=== PATIENT | female | born 1970 | race Caucasian/White ===

== ENCOUNTER 2018-01-21 09:38 | Outpatient (CLI) | payer BC ==
--- NOTE | 2018-01-21 12:01 | Mammography Report ---
Bilateral mammogram and right breast ultrasound: The patient presents with possible right breast abscess. Although there is a language barrier apparently the patient has been treated with antibiotics with improvement. A marker was placed over the area of concern and routine views obtained. The marker is located laterally. The overall breast pattern is heterogeneous, symmetric, and generally unremarkable. There is no finding related to the marker. Targeted right breast ultrasound over the area of concern in the 8:00 location approximately 8 cm from the nipple demonstrates a circumscribed hypoechogenicity in the subcutaneous tissue measuring approximately 2 x 18 mm. No other findings are noted. CAD used. Impression: In view with the patient's history of improvement with medication this most likely to represents a small infectious collection. Recommendation: Continued clinical followup with appropriate treatment. BI-RADS CATEGORY: 2 = Benign ACR BI-RADS MAMMOGRAPHIC CODES: 0 = Needs additional imaging evaluation; 1 = Negative; 2 = Benign; 3 = Probably benign; 4 = Suspicious; 5 = Malignant; 6 = Known biopsy-proven malignancy COMMENT: 1. Dense breast tissue, i.e., adenosis, fibrocystic changes, etc., may obscure an underlying neoplasm. 2. Approximately 10% of cancers are not detected with mammography. 3. A negative mammography report should not delay biopsy if a clinically suspicious mass is present.
== END 2018-01-21 09:39 | disposition home or self-care (01) ==
LOC: US 09:38
PROVIDERS: ATTEND Internal Medicine
DX: N61.1 Abscess of the breast and nipple (principal)
CPT/HCPCS: 77066

== ENCOUNTER 2018-12-27 09:23 | Outpatient (CLI) | payer BC ==
[2018-12-27 10:21] LABS: Chol/HDL Ratio 2.6 %
== END 2018-12-27 09:24 | disposition home or self-care (01) ==
LOC: LAB 09:23
PROVIDERS: ATTEND Internal Medicine
DX: E55.9 Vitamin D deficiency, unspecified (principal); E78.5 Hyperlipidemia, unspecified
CPT/HCPCS: 36415; 80061; 82306

== ENCOUNTER 2020-01-31 09:46 | Outpatient (CLI) | payer BC ==
--- NOTE | 2020-01-31 11:09 | Mammography Report ---
BILATERAL DIGITAL SCREENING MAMMOGRAM WITH CAD HISTORY: SCREENING MAMMO TECHNIQUE: Routine digital mammographic imaging performed. This examination was interpreted with keyla alexandra benefit of Computer-aided Detection analysis. COMPARISON: 01/19/2019, 01/21/2018, 04/22/2017. FINDINGS: Breast Density: scattered fibroglandular appearance of the breast tissue. Digital CC and MLO views demonstrate no mammographic evidence of malignancy. IMPRESSION: No mammographic evidence of malignancy. If the clinical examination remains stable, recommend bilate ral mammogram in approximately one year. BIRADS 1: Negative. FURTHER INFORMATION: According to the [employer], yearly mammograms are recommend ed starting at age 40 and continuing as long as a woman is in good health. Clinical Breast Exams shou ld be part of a periodic health exam-about every 3 years for women in their 20s and 30s and every yea r for women 40 and over. Breast self exam is an option for women starting in their 20s. Any breast ch talha noted on a breast self exam should be reported promptly to the patient's healthcare provider. Br east MRI is recommended for women with an approximately 20-25% or greater lifetime risk of breast can cer, including women with a strong family history of breast or ovarian cancer and women who have been treated for Hodgkin's disease. A negative Mammography report should not discourage follow up or biopsy of a clinically significant f inding and/or abnormality. Dense breast tissue may obscure small neoplasms. The patient will be entered into a reminder system with a target due date for the next screening mamm ogram. Signer Name: Masood Nieto MD Signed: 01/31/2020 11:05 AM Workstation Name: [id number]
== END 2020-01-31 09:47 | disposition home or self-care (01) ==
LOC: MAMMO 09:46
PROVIDERS: ATTEND Internal Medicine
DX: Z12.31 Encounter for screening mammogram for malignant neoplasm of breast (principal)
CPT/HCPCS: 77067

== ENCOUNTER 2020-04-04 11:30 | Outpatient (CLI) | payer BC ==
--- NOTE | 2020-04-04 12:35 | XRay Report ---
LEFT SHOULDER 3 VIEWS INDICATION / CLINICAL INFORMATION: LEFT SHOULDER PAIN. COMPARISON: None available. FINDINGS: No significant skeletal abnormality Signer Name: Vern Rider MD FACR Signed: 04/04/2020 12:31 PM Workstation Name: [id number]
== END 2020-04-04 11:31 | disposition home or self-care (01) ==
LOC: XRAY 11:30
PROVIDERS: ATTEND Internal Medicine
DX: M25.512 Pain in left shoulder (principal)